=== PATIENT | male | born 1955 | race Caucasian/White ===

== ENCOUNTER 2022-04-29 05:54 | Day surgery (SDC) | payer MEDICARE, OTHER, SELFPAY ==
[2022-04-25 14:32] VITALS: BMI 32.1
[2022-04-29 06:11] VITALS: BP 137/99; PULSE 67; RESP 18; TEMP 36.3; O2SAT 97
[2022-04-29] MEDS: sodium chloride 0.9% 1,000 ML 30 ML IV (06:25)
--- NOTE | 2022-04-29 06:40 | ANES.PREANE2 ---
Documented by User: Liana Rdz CRNA 04/29/22 06:47 Pre-Anesthetic Assessment Height/Weight: Height 1.8 m Weight 104.326 kg Temp Pulse Resp BP Pulse Ox 97.4 F L 67 18 137/99 97 04/29/22 06:11 04/29/22 06:11 04/29/22 06:11 04/29/22 06:11 04/29/22 06:11 Preop Diagnosis: FH Operation Date: 04/29/22 07:00 Proposed Procedures p Colonoscopy 87611,Z80.0(Not Applicable) - Kranthi Angel MD Familial anesthetic complications: PONV Last intake: Intake Last Liquid Date 04/28/22 Last Liquid Time 23:30 Last Solid Date 04/27/22 Last Solid Time 21:00 Social No alcohol and No tobacco Airway Submandibular: within normal limits Cervical ROM: within normal limits Mallampati: Class I Dentition: full Pulmonary Sleep Apnea (non-compliant) CV/HEM Hypertension None reported Hepatic None reported GI None reported Metabolic Hyper[place] [facility] [place] Lower Back Pain Neuropsych Depression and Transient Ischemic Attack Anesthetic Plan ASA status: 3 Anesthesia: MAC Medications/Allergies Home Medications Medication Instructions Recorded Confirmed Last Taken Type aspirin 325 mg tablet,delayed 325 mg PO DAILY 04/03/22 04/25/22 04/27/22 History release (Aspir-Jenny) cetirizine 10 mg tablet 10 mg PO DAILY 04/03/22 04/25/22 04/27/22 History citalopram 10 mg tablet 10 mg PO DAILY 04/03/22 04/25/22 04/28/22 History diclofenac sodium 1 % topical gel 2 g TOPICAL .Twice daily g 04/03/22 04/25/22 04/28/22 History (Arthritis Pain (diclofenac)) ezetimibe 10 mg tablet (Zetia) 10 mg PO DAILY 04/03/22 04/25/22 04/28/22 History lisinopril 10 mg tablet 10 mg PO DAILY 04/03/22 04/25/22 04/28/22 History omega-3 fatty acids-fish oil 300 300 cap PO DAILY cap 04/03/22 04/25/22 04/27/22 History mg-500 mg capsule (Fish Oil) trazodone 100 mg tablet 100 mg PO BEDTIME tab 04/03/22 04/25/22 04/27/22 History Allergies Allergy/AdvReac Type Severity Reaction Status Date / Time atorvastatin [From Lipitor] Allergy Unknown Verified 04/16/22 13:27 Current Medications Generic Name Dose Route Start Last Admin Trade Name Yuliet PRN Reason Stop Dose Admin Sodium Chloride 1,000 mls @ 30 mls/hr 04/29/22 06:00 04/29/22 06:25 Sodium Chloride 0.9% IV 04/30/22 05:59 30 mls/hr .Q24H KATHY Administration PFSH Anesthesia Family History Mother Cancer Colon Social History Smoking and tobacco status: never smoked Data Anesthesia Cardiac Studies: No Data to Display
--- NOTE | 2022-04-29 07:14 | W.PM.OPSFHP ---
Same Day Surgery H&P Indication for Procedure/HPI DATE OF PROCEDURE: April 29, 2022 CHIEF COMPLAINT/INDICATIONFOR SURGICAL PROCEDURE: Family history PREOP DIAGNOSIS: FH PLANNED PROCEDURE: Operation Date: 04/29/22 07:00 Proposed Procedures p Colonoscopy 30269,Z80.0(Not Applicable) - Kranthi Angel MD Medications/Allergies* Home Medications Medication Instructions Recorded Confirmed Type aspirin 325 mg tablet,delayed 325 mg PO DAILY 04/03/22 04/25/22 History release (Aspir-Jenny) cetirizine 10 mg tablet 10 mg PO DAILY 04/03/22 04/25/22 History citalopram 10 mg tablet 10 mg PO DAILY 04/03/22 04/25/22 History diclofenac sodium 1 % topical gel 2 g TOPICAL .Twice daily g 04/03/22 04/25/22 History (Arthritis Pain (diclofenac)) ezetimibe 10 mg tablet (Zetia) 10 mg PO DAILY 04/03/22 04/25/22 History lisinopril 10 mg tablet 10 mg PO DAILY 04/03/22 04/25/22 History omega-3 fatty acids-fish oil 300 300 cap PO DAILY cap 04/03/22 04/25/22 History mg-500 mg capsule (Fish Oil) trazodone 100 mg tablet 100 mg PO BEDTIME tab 04/03/22 04/25/22 History Allergies/Adverse Reactions Allergy/AdvReac Type Severity Reaction Status Date / Time atorvastatin [From Lipitor] Allergy Unknown Verified 04/16/22 13:27 Current Medications: Generic Name Dose Route Start Last Admin Trade Name Freq PRN Reason Stop Dose Admin Sodium Chloride 1,000 mls @ 30 mls/hr 04/29/22 06:00 04/29/22 06:25 Sodium Chloride 0.9% IV 04/30/22 05:59 30 mls/hr .Q24H KATHY Administration Pertinent History/Comorbid Conditions* Family History (Updated 04/03/22 @ 16:24 by Keisha Swartz) Cancer Mother Colon Social History Smoking and tobacco status: never smoked Pertinent Exam Findings alert, oriented x 3, clear to auscultation bilaterally, regular rate & rhythm, operative site marked and procedure specific exam findings Recommendations Surgery/Procedure today Coding Level of Care Code Acute [facility] Coordinator for [facility]
[2022-04-29 07:30] VITALS: BP 107/79; PULSE 66; RESP 16; TEMP 36.6; O2SAT 95
[2022-04-29 07:42] VITALS: BP 109/80; PULSE 66; RESP 18; O2SAT 95
--- NOTE | 2022-04-29 12:55 | ANE.PACU2 ---
Inpatient post-anesthesia follow up: Airway intact: Yes Vital signs: Temperature 97.8 F Pulse Rate 66 Respiratory Rate 18 Blood Pressure 109/80 Pulse Oximetry 95 Oxygen Delivery Me thod Room Air Oxygen Flow Rate 3 Fraction of Inspir ed Oxygen Hydration adequate: Yes Nausea and vomiting: No Pain level: 1 Mental status: Baseline
== END 2022-04-29 08:00 | disposition home or self-care (01) ==
PROVIDERS: Visit Provider Internal Medicine
PROC: 0DJD8ZZ Inspection of Lower Intestinal Tract, Via Natural or Artificial Opening Endoscopic (ICD-10-PCS; CPT 45378; principal; 2022-04-29 07:00)
DX: K57.30 Diverticulosis of large intestine without perforation or abscess without bleeding (principal); Z80.0 Family history of malignant neoplasm of digestive organs; G47.30 Sleep apnea, unspecified; I10 Essential (primary) hypertension; E78.5 Hyperlipidemia, unspecified; Z79.82 Long term (current) use of aspirin
CPT/HCPCS: G0121; J2704; J7030